=== PATIENT | male | born 1985 | race Caucasian/White ===

== ENCOUNTER 2019-07-16 16:17 | Emergency (ER) | payer MEDICAID ==
[2019-07-16] MEDS: ALPRAZOLAM 0.25 MG TAB PO (17:14)
== END 2019-07-16 17:54 | disposition home or self-care (01) ==
LOC: FTE 17:54
DX: F41.9 Anxiety disorder, unspecified (principal); R07.89 Other chest pain
CPT/HCPCS: 82962; 93005; 99283-25